=== PATIENT | male | born 1985 | race Caucasian/White ===

== ENCOUNTER 2016-09-21 10:06 | Emergency (ER) | payer BC ==
--- NOTE | ~2016-09-21 | EKG ---
PATIENT: BENNY CUADRA UNIT #: [id number] Ventricular Rate: 66 BPM Atrial Rate: 66 BPM P-R Interval: 162 ms QRS Duration: 78 ms Q-T Interval: 384 ms QTC Calculation(Bezet): 402 ms P Woodridge: 37 degrees Calculated R Woodridge: 99 degrees Calculated T Woodridge: 48 degrees Diagnosis Line: Normal sinus rhythm Diagnosis Line: Rightward axis Diagnosis Line: Borderline ECG Diagnosis Line: No previous ECGs available Diagnosis Line: Confirmed by RUSSELL ESRNA MD ([id number]) on 09/22/2016 Diagnosis Line: 5:36:59 PM INTERPRETING MD: DAPHNE LABOY
--- NOTE | ~2016-09-21 | CR72 ---
[facility] A Service of [facility] & [facility] / [facility] RADIOLOGY TEXT RESULTS PATIENT: BENNY CUADRA LOCATION: SED : 81 UNIT #: [id number] AGE: [address]: Shefali Zelaya MD SEX: M ORDER DR: [id number] [place] [address] [id number] E MR#: [id number] Acc #: [id number] NAME: BENNY CUADRA : 1985 SEX: M STUDY DATE/TIME: 09/21/2016 10:52 UNIT: SED ROOM: STUDY DESCRIPTION: CR Chest Single View Portable Attending Physician: Shefali Zelaya M.D. Ordering Physician: Shefali Zelaya M.D. Primary Care Physician: Mao Cruz M.D. MEDICAL IMAGING REPORT This report is preliminary unless electronic signature is present. EXAM AP portable chest 09/21/2016 HISTORY 30-year-old male in the ED complaining of new onset chest and epigastric pain with dizziness beginning this morning prior to arrival. TECHNIQUE AP portable upright chest x-ray. FINDINGS Heart size and pulmonary vascularity are normal. The lungs are clear. No visible pulmonary infiltrate or pleural effusion. IMPRESSION Negative chest. Dictated by... Familia Mcintyre M.D. THIS IS AN ELECTRONICALLY VERIFIED REPORT Familia Mcintyre M.D. at 09/21/2016 4:12 PM EVE/yahaira TD: 09/21/2016 13:35 JOB #: [id number] MEDICAL IMAGING REPORT
--- NOTE | ~2016-09-21 | CT16 ---
[facility] A Service of [facility] [place] & [facility] RADIOLOGY TEXT RESULTS PATIENT: BENNY CUADRA LOCATION: SED : 81 UNIT #: [id number] AGE: [address]: Shefali Zelaya MD SEX: M ORDER DR: [id number] [address] [address] [id number] E MR#: [id number] Acc #: [id number] NAME: BENNY CUADRA : 1985 SEX: M STUDY DATE/TIME: 09/21/2016 11:53 UNIT: SED ROOM: STUDY DESCRIPTION: CT Angio Chest for PE Attending Physician: Shefali Zelaya M.D. Ordering Physician: Shefali Zelaya M.D. Primary Care Physician: Mao Cruz M.D. MEDICAL IMAGING REPORT This report is preliminary unless electronic signature is present. EXAM CT angiogram of the chest for pulmonary embolism 09/21/2016 1153 hours HISTORY 30-year-old man with complaint of chest pain and dizziness this morning, nausea, evaluate for pulmonary embolism. COMPARISON Chest film 09/21/2016. No prior CT scan. TECHNIQUE Dynamic helical CT angiographic images were obtained from the thoracic inlet through the adrenal glands. 3-D sagittal and coronal reconstructions were performed. Contrast was Isovue-370 100 mL IV. Total exam DLP 877 mGy-cm. This CT examination was performed with one or more of the following radiation dose reduction techniques: automatic exposure control, adjustment of mA and/or kV according to patient size, and iterative reconstruction. FINDINGS Images through the thoracic inlet are normal. The thyroid gland is normal. Images through the chest demonstrate diagnostic quality opacification of the pulmonary arteries which are normal in caliber. There are no filling defects to suggest the presence of pulmonary emboli. The aorta is also normal. Cardiac chambers, pericardium and esophagus are normal. There is no adenopathy. The lungs are well expanded. There is a 6 x 7 mm noncalcified well-circumscribed soft tissue nodule at the lateral right lung base on image 70. A benign etiology is favored. No other pulmonary densities or nodules. There are no effusions. STS. [facility] A Service of [facility] & [facility] RADIOLOGY TEXT RESULTS PATIENT: BENNY CUADRA LOCATION: [facility] : [birth year] UNIT #: [id number] AGE: [address]: Shefali Zelaya MD SEX: M ORDER DR: Limited views through the upper abdomen suggest mild low attenuation of the liver which could indicate mild fatty change. The adrenal glands are normal. The upper poles of the kidneys are normal. IMPRESSION 1. No evidence of pulmonary embolism. Normal caliber aorta. 2. Note is made of a 6 x 7 mm well-circumscribed noncalcified nodule at the lateral right lung base. A benign etiology is favored. There are no prior studies to confirm stability. Suggest followup noncontrasted low-dose chest CT in 6 months to reassess this likely benign nodule. STAT * RESULT Dictated by... Theodora Reese M.D. THIS IS AN ELECTRONICALLY VERIFIED REPORT Theodora Reese M.D. at 09/21/2016 2:28 PM NAHUN/yahaira TD: 09/21/2016 12:14 JOB #: [id number] MEDICAL IMAGING REPORT
[2016-09-21 10:27] LABS: POC - TROPONIN <0.05 ng/mL (<=0.05)
[2016-09-21 10:41] LABS: BASOPHIL# 0.1 X10e3 (0-0.3); BASOPHIL% 1.7 % (0-2.5); EOSINOPHIL# 0.4 X10e3 (0-0.7); EOSINOPHIL% 4.5 % (0.0-7.0); HEMATOCRIT 48.5 % (38.0-50.0); HEMOGLOBIN 16.5 gm/dL (13.0-16.0); LYMPHOCYTE# 2.5 X10e3 (1.0-3.5); LYMPHOCYTE% 28.8 % (17.0-45.0); MEAN CELL VOLUME 86.4 FL (83-96); MEAN CORPUSCULAR HEMOGLOBIN 29.3 PG (28-34); MEAN CORPUSCULAR HGB CONC 33.9 g/dL (30-36); MEAN PLATELET VOLUME 7.5 FL (6.5-11.5); MONOCYTE# 0.7 X10e3 (0-1.0); MONOCYTE% 8.4 % (3.0-12.0); NEUTROPHIL# 4.8 X10e3 (1.5-7.1); NEUTROPHIL% 56.6 % (40-75); PLATELET COUNT 290 X10e3 (140-420); RED BLOOD COUNT 5.62 X10e (3.90-5.60); WHITE BLOOD COUNT 8.6 X10e3 (4.0-10.5)
[2016-09-21 10:42] LABS: DIFF IND NO
[2016-09-21 10:46] LABS: PROTHROMBIN TIME (PATIENT) 10.8 SECONDS (9.5-12.4)
[2016-09-21 10:53] LABS: PARTIAL THROMBOPLASTIN TIME 29.1 SECONDS (25.6-38.1)
[2016-09-21 11:21] LABS: ALBUMIN SERUM 4.7 g/dL (3.5-5.0); ALCOHOL BLOOD <5 mg/dL (0); ALKALINE PHOSPHATASE 66 U/L (32-92); ALT (SGPT) 56 U/L (10-40); AST (SGOT) 36 U/L (10-42); BILIRUBIN, DIRECT <0.1 mg/dL (0.0-0.2); BILIRUBIN,INDIRECT 0.4 mg/dL (0.0-0.9); BILIRUBIN,TOTAL 0.5 mg/dL (0.2-2.0); BLOOD UREA NITROGEN 15 mg/dL (9-23); BUN/CREATININE RATIO 13.63; CALCIUM SERUM 9.5 mg/dL (8.4-10.2); CARBON DIOXIDE 28 mmol/L (22-31); CHLORIDE 103 mmol/L (100-111); CREATININE SERUM 1.1 mg/dL (0.6-1.4); GLOM FILT RATE Estimated ABOVE60 mL/min (>60); GLUCOSE FASTING 104 mg/dL (70-110); LIPASE 30 U/L (22-51); POTASSIUM 3.9 mmol/L (3.5-5.1); PROTEIN TOTAL SERUM 8.2 g/dL (6.0-8.3); SODIUM 139 mmol/L (135-145)
[2016-09-21 11:46] LABS: MAGNESIUM 2.3 mg/dL (1.6-3.0)
[2016-09-21 12:01] LABS: POC - CKMB 1.6 ng/mL (0.0-7.9); POC - TROPONIN <0.05 ng/mL (<=0.05)
== END 2016-09-21 13:15 | disposition home or self-care (01) ==
LOC: SED 10:06
PROVIDERS: Student in an Organized Health Care Education/Training Program
DX: R07.89 Other chest pain (principal); R10.9 Unspecified abdominal pain; R42 Dizziness and giddiness; R11.0 Nausea; Z88.2 Allergy status to sulfonamides; Z91.041 Radiographic dye allergy status
CPT/HCPCS: 36415; 71010; 71275; 80048; 80076; 82553; 83690; 83735; 83874; 83880; 84484; 85025; 85379; 85610; 85730; 86677; 93005; 96365; 96375; 99284; C9113; G0480; J1200; J2405; J2930; Q9967